=== PATIENT | male | born 1950 | race Caucasian/White ===

== ENCOUNTER 2019-07-15 06:42 | Outpatient (CLI) | payer MEDICARE, OTHER ==
--- NOTE | 2019-07-15 12:59 | Ultrasound Report ---
Reason: RUQ PAIN Procedure Date: 07/15/2019 Accession Number: [id number] / [id number] Procedure: US - Abdomen Limited CPT Code: Final Report FULL RESULT: EXAM: ABDOMEN ULTRASOUND LIMITED, RUQ EXAM DATE: 07/15/2019 07:24 AM. CLINICAL HISTORY: Right upper quadrant pain. COMPARISON: None. TECHNIQUE: Real-time scanning was performed with static images obtained. FINDINGS: Liver: Increased echogenicity of liver parenchyma with coarsened echotexture. Liver measures at least 11.7 cm. Main portal vein flow: Hepatopetal. Gallbladder: Normal. No stones, wall thickening, or sonographic Beverly's sign. Biliary System: CBD measures 6 mm. No intrahepatic or extrahepatic ductal dilatation. Other: Visualized portions of the right kidney are unremarkable with no hydronephrosis, maximal sagittal dimension is 11.7 cm as visualized. IMPRESSION: Increased echogenicity of hepatic parenchyma, can be seen with disease such as steatosis. Sonographically, no cholecystitis. [facility]
== END 2019-07-15 06:43 | disposition home or self-care (01) ==
LOC: DI 06:42
PROVIDERS: ATTEND Internal Medicine
DX: R10.11 Right upper quadrant pain (principal)
CPT/HCPCS: 76705